=== PATIENT | male | born 1965 | race Caucasian/White ===

== ENCOUNTER 2018-04-01 18:58 | Emergency (ER) | payer OTHER ==
[2018-04-01] MEDS ORDERED: NS 1,000 ML IV ONE (19:29)
[2018-04-01] MEDS ORDERED: ONDANSETRON 4 MG/2 ML VIAL IVP ONE (19:29)
[2018-04-01 19:35] LABS: PLATELET COUNT 364 10^3/uL (150-400)
[2018-04-01] MEDS ORDERED: LIDOCAINE 2% VISCOUS 15 ML UDCUP PO ONE (19:45)
[2018-04-01] MEDS ORDERED: HYOSCYAMINE SULFATE 0.125 MG TAB PO ONE (19:45)
[2018-04-01] MEDS ORDERED: MAG HYDROX/AL HYDROX/SIMETH 30 ML UDCUP PO ONE (19:45)
[2018-04-01] MEDS ORDERED: ONDANSETRON 4 MG/2 ML VIAL ONE (20:28)
--- NOTE | 2018-04-01 21:06 | EDPHY ---
H & P Time Seen by Provider: 04/01/18 19:26 HPI/ROS: CHIEF COMPLAINT: Abdominal discomfort HISTORY OF PRESENT ILLNESS: This is a 52-year-old male who reports that for the last 3 days he has had abdominal discomfort in the epigastric region. He describes the pain as a spasm of pain. Seems to occur as the day goes on and is especially bothersome at night. Patient has been treating the pain with Tylenol. He has had very mild nausea and a poor appetite. He reports awaking in the morning and just feeling weak. No fever. No diarrhea. No lightheadedness, dizziness, or palpitations. No dark or tarry stools. No cough. No shortness of breath. No clear exacerbating or relieving factors for the discomfort. No urinary tracts infection symptoms, no dysuria, no hematuria. REVIEW OF SYSTEMS: A comprehensive 10 system review of systems was reviewed and is otherwise negative aside from elements mentioned in the history of present illness. PAST MEDICAL HISTORY: Elevated cholesterol, on Lipitor. Family history of aortic aneurysm in his father. Patient himself and his brother have had ultrasounds to evaluate for any congenital aortic aneurysm. Denies a history of hypertension, coronary artery disease, or family history of early coronary artery disease. Denies a history of diabetes. SOCIAL HISTORY: Reports alcohol use over the weekend, slightly heavier than typical. Nonsmoker. No drug use. VITAL SIGNS Reviewed by me. GENERAL: Well-developed, well-nourished, resting comfortably in no respiratory distress. HEENT: Atraumatic. Eyes: No icterus, no injection. Mouth: moist mucous membranes. No erythema or lesions. Neck: supple with no adenopathy. LUNGS: Clear to auscultation bilaterally, no wheezes, rhonchi or rales. CARDIAC: Regular rate and rhythm, no rubs, murmurs or gallops. ABDOMEN: Soft, indicates the area of pain is in at past. Minimal tenderness to palpation. Nondistended. Normal bowel sounds. BACK: No CVA tenderness. EXTREMITIES: No trauma. No edema. Range of motion is normal throughout. NEURO: Alert and oriented, grossly nonfocal. SKIN: Warm and dry, no rash. PSYCHIATRIC: Normal mentation, no agitation. Smoking Status: Never smoked Constitutional: Initial Vital Signs Temperature (C) 36.8 C 04/01/18 19:06 Heart Rate 82 04/01/18 19:06 Respiratory Rate 16 04/01/18 19:06 Blood Pressure 132/93 H 04/01/18 19:06 O2 Sat (%) 96 04/01/18 19:06 O2 Delivery Mode Room Air Allergies/Adverse Reactions: No Known Allergies Allergy (Unverified 04/01/18 19:10) Home Medications: Medication Instructions Recorded Lipitor 04/01/18 Medical Decision Making - Diagnostics EKG Interpretation: 12-LEAD EKG: Please see the full report in [facility]. My interpretation: Sinus rhythm, slight ST elevation which appears to be early repolarization changes. Imaging Results: Imaging Impressions Abdomen Ultrasound 04/01/18 19:45 Impression: 1. Negative right upper quadrant sonogram. Results called to Dr. Pham at 8:[address] 04/01/18 21:33 Impression: 1. Congenital malrotation of the colon. 2. Deformed spleen, with multiple splenules, suggesting congenital deformity or prior trauma. 3. Left renal and hepatic cysts. Results called to Dr. Julia Pham at 10:00 . Imaging: Discussed imaging studies w/ coal gasification technician Radiologist ED Course/Re-evaluation: 52-year-old male with a spasm, heavy, discomfort in the upper abdomen for the last 3 days. Evaluation included labs demonstrating a normal CBC, negative lipase, normal LFTs, ultrasound demonstrating a normal gallbladder. Bedside troponin was negative. Patient was reexamined following a GI cocktail. He declined other pain medications. He reports some minimal improvement in his discomfort. Abdominal CT was obtained in order to evaluate for any mass. 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 Patient was reexamined again. He feels reassured by the findings in the evaluation thus far. He will follow up with Gastroenterology for further testing to potentially include an upper GI series. We discussed the CT results. I see no evidence of the evaluation thus far of a surgical abdomen, etiology requiring specific treatment or inpatient treatment. I doubt cardiac etiology in this patient with minimal risk factors, no chest pain, no shortness of breath, no nausea, nonischemic EKG and negative troponin. Patient was discharged home with instructions regarding bland diet, consideration of 2 week course of omeprazole, was also given Ativan for muscle spasm and to help the patient sleep. He will follow up with Gastroenterology if he is not significantly improved by Wednesday and follow up with his primary care physician for further evaluation if this symptom complex continues to occur. Differential Diagnosis: After obtaining the patient's history and performing an examination, differential diagnosis considered included but was not limited to appendicitis, cholecystitis, gastritis, pancreatitis, kidney stones, urinary tract infections and other causes. - Data Points Laboratory Results: Laboratory Results 04/01/18 19:23 04/01/18 19:23 04/01/18 04/01/18 04/01/18 20:41 19:23 19:23 WBC 6.72 10^3/uL 10^3/uL (3.80-9.50) RBC 4.99 10^6/uL 10^6/uL (4.40-6.38) Hgb 16.1 g/dL g/dL (13.7-17.5) Hct 48.2 % % (40.0-51.0) MCV 96.6 fL fL (81.5-99.8) MCH 32.3 pg pg (27.9-34.1) MCHC 33.4 g/dL g/dL (32.4-36.7) RDW 12.9 % % (11.5-15.2) Plt Count 364 10^3/uL 10^3/uL (150-400) MPV 9.2 fL fL (8.7-11.7) Neut % (Auto) 71.2 % % (39.3-74.2) Lymph % (Auto) 18.9 % % (15.0-45.0) [place] % (Auto) 8.2 % % (4.5-13.0) Eos % (Auto) 1.0 % % (0.6-7.6) Baso % (Auto) 0.6 % % (0.3-1.7) Nucleat RBC Rel Count 0.0 % % (0.0-0.2) Absolute Neuts (auto) 4.78 10^3/uL 10^3/uL (1.70-6.50) Absolute Lymphs (auto) 1.27 10^3/uL 10^3/uL (1.00-3.00) Absolute Monos (auto) 0.55 10^3/uL 10^3/uL (0.30-0.80) Absolute Eos (auto) 0.07 10^3/uL 10^3/uL (0.03-0.40) Absolute Basos (auto) 0.04 10^3/uL 10^3/uL (0.02-0.10) Absolute Nucleated RBC 0.00 10^3/uL 10^3/uL (0-0.01) Immature Gran % 0.1 % % (0.0-1.1) Immature Gran # 0.01 10^3/uL 10^3/uL (0.00-0.10) Sodium 138 mEq/L mEq/L (135-145) Potassium 4.0 mEq/L mEq/L (3.3-5.0) Chloride 100 mEq/L mEq/L (97-110) Carbon Dioxide 29 mEq/l mEq/l (22-31) Anion Gap 9 mEq/L mEq/L (8-16) BUN 12 mg/dL mg/dL (7-23) Creatinine 0.8 mg/dL mg/dL (0.7-1.3) Estimated GFR > 60 Glucose 196 mg/dL H mg/dL (70-100) Calcium 9.8 mg/dL mg/dL (8.5-10.4) Total Bilirubin 0.6 mg/dL mg/dL (0.1-1.4) Conjugated Bilirubin 0.1 mg/dL mg/dL (0.0-0.5) Unconjugated Bilirubin 0.5 mg/dL mg/dL (0.0-1.1) AST 23 IU/L IU/L (17-59) ALT 30 IU/L IU/L (21-72) Alkaline Phosphatase 46 IU/L IU/L (38-126) POC Troponin I 0.00 ng/mL ng/mL (0.00-0.08) Total Protein 7.7 g/dL g/dL (6.3-8.2) Albumin 4.5 g/dL g/dL (3.5-5.0) Lipase 18 IU/L L IU/L (23-300) Medications Given: Discontinued Medications Al Hydroxide/Mg Hydroxide (Maalox Susp) 30 ml PO ONCE ONE Stop: 04/01/18 19:46 Last Admin: 04/01/18 20:35 Dose: 30 ml Hyoscyamine Sulfate (Levsin, Hyomax-Sl) 0.25 mg PO ONCE ONE Stop: 04/01/18 19:46 Last Admin: 04/01/18 20:34 Dose: 0.25 mg Sodium Chloride (Ns) 1,000 mls @ 0 mls/hr IV ONCE ONE; Wide Open PRN Reason: Protocol Stop: 04/01/18 19:30 Last Admin: 04/01/18 20:35 Dose: 1,000 mls Lidocaine (Lidocaine 2% Viscous) 15 ml PO ONCE ONE Stop: 04/01/18 19:46 Last Admin: 04/01/18 20:35 Dose: 15 ml Lorazepam (Ativan 1 Mg Prepack#4) 1 btl TAKEHOME EDNOW ONE Stop: 04/01/18 22:33 Last Admin: 04/01/18 22:40 Dose: 1 btl Ondansetron HCl (Zofran) 4 mg IVP EDNOW ONE Stop: 04/01/18 19:30 Last Admin: 04/01/18 22:30 Dose: Not Given Pantoprazole Sodium (Protonix) 40 mg PO EDNOW ONE Stop: 04/01/18 22:01 Last Admin: 04/01/18 22:29 Dose: 40 mg Point of Care Test Results: Chemistry 04/01/18 20:41 POC Troponin I 0.00 ng/mL ng/mL (0.00-0.08) Departure - Departure Disposition: Home, Routine, Self-Care Clinical Impression: Epigastric pain Condition: Good Instructions: Lorazepam (By mouth), Epigastric Pain (ED) Additional Instructions: Consider taking omeprazole each day for the next 14 days. This is available [id number]. You may try Maalox or Mylanta before you go to bed at night. This may help coat your stomach and prevent some spasm. You been given a prepack of Ativan. You may take this as needed to help you sleep and help with the cramping and spasm in your abdomen. Please follow up with a movie shot camera operator next week. Your CT scan tonight does show some congenital abnormalities. 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 This is for your information. It should not be a factor in the pain which are experiencing tonight. Referrals: NADYA BONE [Primary Care Provider] - As per Instructions
[2018-04-01] MEDS ORDERED: IOPAMIDOL (ISOVUE-300) 100 ML BTL ONE (21:34)
[2018-04-01] MEDS ORDERED: PANTOPRAZOLE SODIUM 40 MG TAB PO ONE (22:00)
[2018-04-01] MEDS ORDERED: LORAZEPAM 1 MG PREPACK#4 BTL TAKEHOME ONE (22:32)
[2018-04-01 22:37] VITALS: BP 143/97
--- NOTE | 2018-04-02 00:03 | CPEKG ---
Test Reason : OPEN Blood Pressure : / mmHG Vent. Rate : 069 BPM Atrial Rate : 067 BPM P-R Int : 168 ms QRS Dur : 084 ms QT Int : 379 ms P-R-T Axes : 066 063 063 degrees QTc Int : 406 ms Sinus rhythm Consider left ventricular hypertrophy ST elev, probable normal early repol pattern Confirmed by Julia Pham ([id number]) on 04/02/2018 12:02:47 AM Referred By: Confirmed By:Julia Pham
== END 2018-04-01 22:46 | disposition home or self-care (01) ==
DX: R10.13 Epigastric pain (principal); E86.9 Volume depletion, unspecified; Q43.3 Congenital malformations of intestinal fixation; R93.3 Abnormal findings on diagnostic imaging of other parts of digestive tract; Z82.49 Family history of ischemic heart disease and other diseases of the circulatory system
CPT/HCPCS: 84484-PO; J2405; Q9967